=== PATIENT | male | born 1950 | race Caucasian/White ===

== ENCOUNTER 2021-06-10 12:33 | Outpatient (CLI) | payer MEDICARE, OTHER, SELFPAY ==
--- NOTE | ~2021-06-10 | XR_ITS ---
XR chest 2V DATE: 06/10/2021 12:53 INDICATION: Cough TECHNIQUE: PA and lateral views COMPARISON: portable AP chest FINDINGS: Normal heart size. No hilar or mediastinal enlargement. No pulmonary infiltrate or consolid ation, pleural effusion or pulmonary vascular congestion or pneumothorax. Degenerative spurring and mild dextro scoliosis of the thoracic spine. IMPRESSION: No active cardiopulmonary disease Reviewed, dictated and finalized at location A. N PAPER HAT MENDER
== END 2021-06-10 12:34 | disposition home or self-care (01) ==
PROVIDERS: PCP Internal Medicine; Visit Provider Internal Medicine
DX: R05.9 Cough, unspecified (principal)
CPT/HCPCS: 71046

== ENCOUNTER 2022-05-08 10:51 | Outpatient (CLI) | payer MEDICARE, OTHER, SELFPAY ==
[2022-05-08 20:01] LABS: Alanine Aminotransferase 24 U/L (6-50); Albumin Level 4.3 g/dL (3.5-5.1); Alkaline Phosphatase 77 U/L (38-126); Anion Gap 5 mmol/L (8-16); Aspartate Amino Transferase 34 U/L (17-59); Bilirubin,Total 0.5 mg/dL (0.2-1.3); Blood Urea Nitrogen 15 mg/dL (9-20); Calcium 9.1 mg/dL (8.4-10.2); Carbon Dioxide 30 mmol/L (22-30); Chloride 104 mmol/L (98-107); Cholesterol 136 mg/dL (0-200); Estimated Glomerular Filt Rate > 60; Glucose 103 mg/dL (65-110); HDL Direct 38 mg/dL; Potassium 4.9 mmol/L (3.4-5.0); Sodium 139 mmol/L (137-145); Triglycerides 120 mg/dL (<150)
[2022-05-08 20:12] LABS: LDL Cholesterol Direct 66 mg/dL
== END 2022-05-08 10:52 | disposition home or self-care (01) ==
LOC: ANHGOSHLAB 10:53
PROVIDERS: PCP Family Medicine; Visit Provider Family Medicine
DX: I25.10 Atherosclerotic heart disease of native coronary artery without angina pectoris (principal); E78.5 Hyperlipidemia, unspecified; Z13.228 Encounter for screening for other metabolic disorders; Z12.5 Encounter for screening for malignant neoplasm of prostate
CPT/HCPCS: 36415; 80053; 80061; 84153; G0103

== ENCOUNTER → 2022-08-26 12:02 | Outpatient (CLI) | payer MEDICARE, OTHER, SELFPAY ==
--- NOTE | ~2022-08-26 | XR_ITS ---
EXAMINATION: XR chest 2V Exam Date/Time: 08/26/2022 12:09 CDT HISTORY: J39.8 - Other specified diseases of upper respiratory tract Comparison: 06/10/2021. RESULT: Lines, tubes, and devices: None. Lungs and pleura: Clear. Cardiomediastinal silhouette: Stable. Other: No acute osseous or upper abdominal finding. IMPRESSION: No acute cardiopulmonary process. Reviewed, dictated and finalized at location K.
== END ==
PROVIDERS: PCP Family Medicine; Visit Provider Family Medicine
DX: J39.8 Other specified diseases of upper respiratory tract (principal)
CPT/HCPCS: 71046

== ENCOUNTER 2022-08-26 12:28 | Outpatient (CLI) | payer MEDICARE, OTHER, SELFPAY ==
[2022-08-26 20:33] LABS: Prostate Specific Antigen 3.6 ng/mL (< OR = 4.0)
== END 2022-08-26 12:29 | disposition home or self-care (01) ==
LOC: ANHGOSHLAB 12:32
PROVIDERS: PCP Family Medicine; Visit Provider Family Medicine
DX: R97.20 Elevated prostate specific antigen [PSA] (principal); Z12.5 Encounter for screening for malignant neoplasm of prostate
CPT/HCPCS: 36415; 84153; G0103

== ENCOUNTER → 2023-04-14 13:40 | Outpatient (CLI) | payer MEDICARE, OTHER, SELFPAY ==
--- NOTE | ~2023-04-14 | XR_ITS ---
EXAM: XR knee LT 3V DATE: 04/14/2023 14:02 HISTORY: Pain in unspecified knee; medial Lt knee pain w/o injury . COMPARISON: None available. FINDINGS: Normal mineralization. No fracture or dislocation. 5 cm mostly sclerotic lesion in the med ullary space of the distal femur, approximately 10 cm above the joint line, irregular margin with rose row zone of transition, calcified matrix. No cortical breakthrough, periosteal change, or scalloping. Mild medial joint space narrowing. Mild tricompartmental osteophytosis. No erosion or periosteal sandra nge. Soft tissues within normal limits. IMPRESSION: No acute osseous finding in the left knee. Mild tricompartmental osteoarthritis. 5 cm distal left femoral lesion, likely enchondroma. Low-grade chondrosarcoma cannot be excluded radi ographically. If pain localizes to the distal femur, consider MR of the femur and/or bone scanning. O therwise recommend close clinical/radiographic follow-up. Reviewed, dictated and finalized at location K. RACT ADMIN IMPRESSION: No acute osseous finding in the left knee. Mild tricompartmental osteoarthritis. 5 cm distal left femoral lesion, likely enchondroma. Low-grade chondrosarcoma c annot be excluded radiographically. If pain localizes to the distal femur, cons ider MR of the femur and/or bone scanning. Otherwise recommend close clinical/r adiographic follow-up.
== END ==
PROVIDERS: PCP Nurse Practitioner Family; Visit Provider Nurse Practitioner Family
DX: M25.562 Pain in left knee (principal); M17.12 Unilateral primary osteoarthritis, left knee; M89.9 Disorder of bone, unspecified
CPT/HCPCS: 73562

== ENCOUNTER 2023-05-14 10:39 | Outpatient (CLI) | payer MEDICARE, OTHER, SELFPAY ==
[2023-05-14 17:29] LABS: Alanine Aminotransferase 26 U/L (6-50); Albumin Level 4.3 g/dL (3.5-5.1); Alkaline Phosphatase 76 U/L (38-126); Anion Gap 8 mmol/L (8-16); Aspartate Amino Transferase 41 U/L (17-59); Bilirubin,Total 0.9 mg/dL (0.2-1.3); Blood Urea Nitrogen 14 mg/dL (9-20); Calcium 9.3 mg/dL (8.4-10.2); Carbon Dioxide 30 mmol/L (22-30); Chloride 101 mmol/L (98-107); Cholesterol 112 mg/dL (0-200); Estimated Glomerular Filt Rate > 60; Glucose 89 mg/dL (65-110); HDL Direct 30 mg/dL; Potassium 4.3 mmol/L (3.4-5.0); Sodium 139 mmol/L (137-145); Triglycerides 125 mg/dL (<150)
[2023-05-14 17:40] LABS: LDL Cholesterol Direct 60 mg/dL
== END 2023-05-14 10:40 | disposition home or self-care (01) ==
LOC: ANHGOSHLAB 10:41
PROVIDERS: PCP Family Medicine; Visit Provider Family Medicine
DX: I25.10 Atherosclerotic heart disease of native coronary artery without angina pectoris (principal); Z13.220 Encounter for screening for lipoid disorders; Z13.228 Encounter for screening for other metabolic disorders; Z12.5 Encounter for screening for malignant neoplasm of prostate
CPT/HCPCS: 36415; 80053; 80061; 84153; G0103

== ENCOUNTER 2023-05-18 13:29 | Outpatient (CLI) | payer MEDICARE, OTHER, SELFPAY ==
--- NOTE | ~2023-05-18 | MR_ITS ---
EXAMINATION: MR femur LT wo con DATE: 05/18/2023 14:46 INDICATION: Benign neoplasm of bone and articular cartilage. Left femur pain. TECHNIQUE: Magnetic resonance imaging (MRI) of the left femur was performed without intravenous contr ast. Sequences included axial, sagittal and coronal T1-weighted FSE and fluid sensitive FSE STIR. COMPARISON: Left knee radiographs dated 04/14/2023 FINDINGS: Intramedullary bone lesion in the distal metadiaphyseal region of the left femur which corresponds to the ring and arc-like chondroid matrix on the prior radiographs. The lesion which similarly demonstr ates a typical pattern for an enchondroma with cluster of grape like increased T2 signal and ring and arc-like pattern of low signal intensity corresponding to the calcified matrix. The lesion measures 5.0 cm proximal to distal and 2.3 x 2.0 cm in maximal transaxial dimensions. Immediately adjacent mar row signal is normal with no evident reactive edema. There is no evident endosteal scalloping, perios titis or extraosseous extension. There is intramedullary metallic magnetic field artifact in the prox imal left femur which could be due to either internal fixation instrumentation or femoral component o f a left hip arthroplasty. Small left knee joint effusion. There is mild edema-like marrow signal sandra nge along the medial margin of the anterior weightbearing medial femoral condyle. There is a partiall y visualized at least 5.8 x 2.6 x 3.0 cm loculated fluid collection located posterior to the left gre ater trochanter which is without surrounding inflammatory edema. Differential would include could a p ostoperative hematoma/seroma, bursitis, ganglion cyst or less likely abscess in the appropriate clini elma setting. IMPRESSION: 1. 5.0 x 2.3 x 2.0 cm enchondroma in the distal left femoral metadiaphyseal region. No aggressive fea tures on MRI or radiographs to elevate suspicion for malignant transformation/chondrosarcoma. 2. Large loculated fluid collection posterior to the left greater trochanter. There are postoperative changes in the proximal femur and this could represent a residual postoperative hematoma/seroma. Dif ferential would include bursitis, ganglion cyst or less likely abscess in the appropriate clinical se tting. 3. Nonspecific small right knee joint effusion. 4. Marrow edema along the medial aspect of the anterior weightbearing medial femoral condyle which co uld be related to osteoarthritis and overlying chondromalacia. Assessment on the current study is limited due to both the large kpuau-pp-fxim as well as magnetic fi eld distortion resulting from positioning at the peripheral margin field of imaging. Reviewed, dictated and finalized at location A. PING CLERK IMPRESSION: 1. 5.0 x 2.3 x 2.0 cm enchondroma in the distal left femoral metadiaphyseal reg ion. No aggressive features on MRI or radiographs to elevate suspicion for reinaldo gnant transformation/chondrosarcoma. 2. Large loculated fluid collection posterior to the left greater trochanter. T here are postoperative changes in the proximal femur and this could represent a residual postoperative hematoma/seroma. Differential would include bursitis, g anglion cyst or less likely abscess in the appropriate clinical setting. 3. Nonspecific small right knee joint effusion. 4. Marrow edema along the medial aspect of the anterior weightbearing medial fe moral condyle which could be related to osteoarthritis and overlying chondromal acia. Assessment on the current study is limited due to both the large cpexj-el-hpal as well as magnetic field distortion resulting from positioning at the peripher al margin field of imaging.
== END 2023-05-18 13:30 | disposition home or self-care (01) ==
PROVIDERS: PCP Family Medicine; Visit Provider Physician Assistant
DX: D16.9 Benign neoplasm of bone and articular cartilage, unspecified (principal); M25.462 Effusion, left knee
CPT/HCPCS: 73721

== ENCOUNTER 2024-07-20 15:22 | Outpatient (CLI) | payer MEDICARE, OTHER, SELFPAY ==
--- OUTSIDE RECORDS SUMMARY | 2024-07-20 16:53 | XMS_ITS | Encounter Summary ---
Author Organization [facility] Healthcare Address [address] [place] [address] Care Team Providers Care Chief Drafter Name Role Phone Miscellaneous, Not In File Primary Care Provider Unavailable Reason for Visit * Auth/Cert (Routine) Specialty Diagnoses / Procedures Referred By Delmar t Referred To Contact Diagnoses Personal history of colonic polyps Encounter for screening colonoscopy Personal history of colonic polyps [Z86.010] Encounter for screening colonoscopy [Z12.11] Procedures [place] COLONOSCOPY FLX DX W/COLLJ SPEC WHEN PFRMD COLONOSCOPY Referral ID Status Reason Start Date Expiration Date Visits Re quested Visits Authorized [id number] 1 1 Encounter Details Date Type Department Care Team (Late st Contact Info) Description 02/02/2024 Hospital Encounter [facility] [address] [place] [address] Henrique Green MD [address] [place] [phone] Social History Tobacco Use Types Packs/Day Years Used Date Smoking Tobacco: Former Cigarettes Q uit: 1976 Smokeless Tobacco: Never Alcohol Use Standard Drinks/Week Comments Not Currently 0 (1 standard drink = 0.6 oz pur e alcohol) Personal Safety Answer Date Recorded Getting School Help Needed Not on file 05/01 Sex and Gender Information Value Date Recorded Sex Assigned at Not on file 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
--- OUTSIDE RECORDS SUMMARY | 2024-07-20 16:53 | XMS_ITS | Referral Summary ---
Author Organization [facility] Address [address] [place] [address] Care Team Providers Care Exhibit Specialist Name Role Phone Miscellaneous, Not In File Primary Care Provider Unavailable Allergies Active Allergy Reactions Criticality Noted Date Comments Sulfa (Sulfonamide Antibiotics) Hives Reaction: HIVES Medications metoprolol XL (TOPROL-XL) 25 mg 24 hr tablet Take 1 tablet (25 mg total) by mouth daily Active atorvastatin (LIPITOR) 10 mg tablet Take 2 tablets (20 mg total) by mouth daily Active aspirin 81 mg chewable tablet Take 1 tablet (81 mg total) by mouth daily Active multivitamin tabletIndicatio ns:Vitamin Deficiency Prevention Take 1 tablet by mouth Active triamcinolone (NASACORT) 55 mcg nasal inhaler Administer 2 sprays into each nostril daily 16.9 mL 3 0 Active Active Problems Problem Noted Date Diagnosed Date Impacted cerumen of right ear 08/12/2023 Balance problems 08/12/2023 Sensorineural hearing loss (SNHL) of both ears 0 08/12/2023 Personal history of colonic polyps 05/01/2023 Encounter for screening colonoscopy 05/01/2023 Acute diffuse otitis externa of left ear 021 Chronic maxillary sinusitis 07/04/2019 Dizziness and giddiness 07/04/2019 Screen for colon cancer 01/06/2019 Overview (01/06/2019): Added automatically from request for surgery [id number] Social History Tobacco Use Types Packs/Day Years [...] on file 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 Gender Identity Not on file Sexual Orientation Not on file Last Filed Vital Signs Vital Sign Reading Time Taken Comments Blood Pressure 140/70 01/25/2019 11:05 AM CDT Pulse 59 01/25/2019 11:05 AM CDT Temperature 36.9 C (98.5 F) 01/25/2019 9:37 AM CDT Respiratory Rate 18 08/12/2023 10:36 AM CDT Oxygen Saturation 99% 01/25/2019 11:05 AM CDT Inhaled Oxygen Concentration - - Weight 93 kg (205 lb) 08/12/2023 10:36 AM CDT Height 182.9 cm (6') 08/12/2023 10:36 AM CDT Body Mass Index 27.8 08/12/2023 10:36 AM CDT Plan of Treatment Not on file Procedures Procedure Name Priority Date/Time Associated Diagnosis Comments COLONOSCOPY 01/25/2019 9:44 AM CDT from Last 3 Months or Most Recently Relevant to Health Maintenance Results * COLONOSCOPY (01/25/2019 9:44 AM CDT) Anatomical Region Laterality Modality Other Narrative Procedure Note Evelio Fuentes MD - 01/25/2019 9:44 AM CDT [facility] Patient Name: Tk Boateng Procedure Date: 01/25/2019 9:44 AM Date of : 1950 Admit Type: Outpatient Age: 68 Gender: Male Attending MD: Evelio Fuentes M.D. Room: [facility] END[facility]COPY RO[facility] 2 Note Status: Finalized Patient Profile: Refer to note in patient chart for documentation of history and physical. Procedure: Colonoscopy Indications: High risk colon cancer surveillance: Personalhistory of colonic polyps, Last colonoscopy: August 2015 Referring MD: Rm Naranjo MD Providers: Evelio Fuentes M.D. Impression: - Hemorrhoids found on perianal exam. - Diverticulosis in the sigmoid colon. - The examination was otherwise normal. - No specimens collected. Recommendation: - Discharge patient to home. - Resume previous diet. - Continue present medications. - Repeat colonoscopy in 5 years for surveillance. - Return to primary care physician as previously scheduled. Medicines: Propofol per Anesthesia Complications: No immediate complications. Estimated Blood Loss: Estimated blood loss: none. Procedure: Pre-Anesthesia Assessment: - This assessment was completed [Time of Assessment] prior to the administration of sedation. The benefits, risks and alternatives of theprocedure and sedation were discussed and informed consent was obtained. All questions were answered. Please referto the signed informed consent document in the medical record. The bowel preparation used was Miralax.Bowel prep was administered using a single dose. The scope was passed under direct vision. The Colonoscope [id number] was introduced through the anusand advanced to the the cecum, identified by appendiceal orifice and ileocecal valve. The colonoscopy was performed without difficulty. The patient toleratedthe procedure well. The quality of the bowel preparation was good. Findings: Hemorrhoids were found on perianal exam. Multiple small and large-mouthed diverticula were found in thesigmoid colon. The exam was otherwise without abnormality. Electronically signed by Evelio Fuentes M.D. Evelio Fuentes M.D. 01/25/2019 10:49:40 AM Number of Addenda: 0 Note Initiated On: 01/25/2019 9:44 AM Procedure Code(s): --- Professional --- G0105, Colorectal cancer screening; colonoscopy on individual at high risk Diagnosis Code(s): --- Professional --- K57.30, Diverticulosis of large intestine without perforation orabscess without bleeding K64.9, Unspecified hemorrhoids Z86.010, Personal history of colonic polyps CPT copyright 2017 [employer]. All rights reserved. The codes documented in this report are preliminary and upon mesh worker reviewmay be revised to meet current compliance requirements. Recognized by the [place] [employer] for promoting quality in endoscopy Evelio Fuentes MD ENDOSCOPY PROCEDURES Final Re sult from Last 3 Months or Most Recently Relevant to Health Maintenance Insurance MEDICARE [facility] Address: [facility] [address] [place] [address] [facility] MEDICARE [facility] MEDICARE [facility] Advance Directives For more information, please contact: [phone] * Full Code (Latest Code Status on File) Date Activated Date Inactivated Comments 01/25/2019 9:29 AM 01/25/2019 3:53 PM * Full Code Date Activated Date Inactivated Comments 01/25/2019 9:29 AM 01/25/2019 9:29 AM Care Teams Exhibit Specialist Relationship Specialty Start Date End Date Miscellaneous, Not In File PCP - General 01/25/24
--- OUTSIDE RECORDS SUMMARY | 2024-07-20 16:53 | XMS_ITS | Clinical Summary ---
Author Organization [facility] Address [address] [place] [address] Care Team Providers Care Pet Training Instructor Name Role Phone Miscellaneous, Not In File [...] (01/06/2019): Added automatically from request for surgery [id number] Surgical History Surgery Date Site/Laterality Comments [facility] FOOT RELEASE CARDIAC CATHETERIZATION HIP SURGERY POLYPECTOMY COLONOSCOPY 08/03/2015 - 09/01/2015 CARDIAC STENT PLACEMENT 08/02/2014 - 08/31/2014 3 stents Medical History Medical History Date Comments Osteoarthritis Heart attack (HCC) Colon polyp Allergic rhinitis Heart disease Family History Medical History Relation Name Comments Arthritis Mother Cancer Mother Hypertension Mother Colon cancer Sister Relation Name Status Comments Mother Sister Social History Tobacco Use Types Packs/Day Years [...] on file 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 Gender Identity Not on file Sexual Orientation Not on file Obstetrics History Last Filed Vital Signs Vital Sign Reading [...] 08/12/2023 10:36 AM CDT Plan of Treatment Health Maintenance Due Date Last Done Comments Depression Screening 1950 Fall Risk Assessment 1950 Hepatitis C Screening 1950 DTaP/Tdap/Td Vaccine (1 - Tdap) 1960 Hepatitis B Screening 1967 Zoster Vaccine (1 of 2) 1999 Abdominal Aortic Aneurysm (A AA) Screen 2014 Well Visit 65+ 2014 Pneumococcal vaccine 65+ (2 of 2 - PCV) 08/15/2015 08/14/2014 Influenza Vaccine (#1) 2024 8, 02/23/2017, 02/21/2016 Colon Cancer Screening-Colonoscopy 01/25/2029 01/25/2019, 09/24/2015, 09/24/2015 Colon Cancer Screening-CT Colonography Discontinued 01/25/2019, 09/24/2015, 09/24/2015 Colon Cancer Screening-DNA Stool Discontinued 01/25/2019, 09/24/2015, 09/24/2015 Colon Cancer Screening-FIT Discontinued 01/25, 09/24/2015, 09/24/2015 Colon Cancer Screening-Sigmoidoscopy Discontinue d 01/25/2019, 09/24/2015, 09/24/2015 Procedures Procedure Name Priority Date/Time Associated Diagnosis [...] Male Attending MD: Evelio Fuentes M.D. Room: [facility] ENDOSCOPY ROOM 2 Note Status: Finalized Patient [...] was passed under direct vision. The Colonoscope [id number] was introduced through the anusand advanced to [...] history of colonic polyps CPT copyright 2017 [employer]. All rights reserved. The codes documented in this report are preliminary and upon car rider reviewmay be revised to meet current compliance requirements. Recognized by the [employer] for promoting quality in endoscopy Evelio Fuentes MD ENDOSCOPY PROCEDURES Final Re sult from Last 3 Months or Most Recently Relevant to Health Maintenance Insurance MEDICARE [facility] MEDICARE [facility] MEDICARE [facility] Advance Directives For more information, please contact: [phone] * Full Code (Latest Code Status on File) Date Activated Date Inactivated Comments 01/25/2019 9:29 AM 01/25/2019 3:53 PM * Full Code Date Activated Date Inactivated Comments 01/25/2019 9:29 AM 01/25/2019 9:29 AM Care Teams Pet Training Instructor Relationship Specialty Start Date End Date Miscellaneous, Not In File PCP - General 01/25/24
[2024-07-20 19:20] LABS: Basophils Absolute Auto 0.1 K/mm3 (0.0-0.1); Basophils Percent Auto 0.7 % (0.2-1.2); Eosinophils Absolute Auto 0.2 K/mm3 (0-0.3); Eosinophils Percent Auto 2.4 % (0-4.4); Hematocrit 42.8 % (42.0-52.0); Hemoglobin 13.9 g/dL (14.0-18.0); Immature Granulocyte Absolute 0.04 K/mm3 (0.00-0.031); Immature Granulocyte Percent A 0.6 % (0-0.5); Lymphocytes Absolute Auto 0.79 K/mm3 (0.9-3.2); Mean Corpuscular HGB Conc 32.5 g/dl (32-36); Mean Corpuscular Hemoglobin 31.5 pg (26-34); Mean Corpuscular Volume 97.1 fl (80-100); Mean Platelet Volume 9.6 fl (7.4-10.4); Monocytes Absolute Auto 0.8 K/mm3 (0.1-0.6); Monocytes Percent Auto 10.8 % (2.6-8.5); Neutrophils Absolute Auto 5.4 K/mm3 (1.3-6.7); Neutrophils Percent Auto 74.5 % (45.5-73.1); Platelet Count Result 212 k/mm3 (150-375); Red Blood Count 4.41 M/mm3 (4.6-6.20); Red Cell Distribution Width 13.1 % (11.5-14.5); White Blood Count 7.2 K/mm3 (4.5-10.0)
[2024-07-20 20:03] LABS: Alanine Aminotransferase 28 U/L (6-50); Albumin Level 4.3 g/dL (3.5-5.1); Alkaline Phosphatase 79 U/L (38-126); Anion Gap 7 mmol/L (4-12); Aspartate Amino Transferase 29 U/L (17-59); Bilirubin,Total 0.9 mg/dL (0.2-1.3); Blood Urea Nitrogen 15 mg/dL (9-20); Calcium 9.5 mg/dL (8.4-10.2); Carbon Dioxide 31 mmol/L (22-30); Chloride 102 mmol/L (98-107); Cholesterol 100 mg/dL (0-200); Estimated Glomerular Filt Rate > 60; Glucose 97 mg/dL (65-110); HDL Direct 35 mg/dL; Potassium 5.3 mmol/L (3.4-5.0); Sodium 140 mmol/L (137-145); Triglycerides 99 mg/dL (<150)
[2024-07-20 20:13] LABS: LDL Cholesterol Direct 45 mg/dL
[2024-07-20 20:32] LABS: Prostate Specific Antigen 3.8 ng/mL (< OR = 4.0)
== END 2024-07-20 15:23 | disposition home or self-care (01) ==
LOC: ANHGOSHLAB 15:23
PROVIDERS: PCP Nurse Practitioner Family; Visit Provider Nurse Practitioner Family
DX: E78.49 Other hyperlipidemia (principal); I25.10 Atherosclerotic heart disease of native coronary artery without angina pectoris; R53.83 Other fatigue; Z12.5 Encounter for screening for malignant neoplasm of prostate; E66.89 Other obesity not elsewhere classified
CPT/HCPCS: 36415; 80053; 80061; 84153; 84443; 85025; G0103

== ENCOUNTER 2024-07-28 09:19 | Outpatient (CLI) | payer MEDICARE, OTHER, SELFPAY ==
--- OUTSIDE RECORDS SUMMARY | 2024-07-28 09:59 | XMS_ITS | Referral Summary ---
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 Room: [facility] ENDOSCOPY ROOM 2 Note Status: [...] was passed under direct vision. The Colonoscope [id number] was introduced through the anusand advanced to [...] history of colonic polyps CPT copyright 2017 [employer]. All rights reserved. The codes documented in this report are preliminary and upon motion picture set up worker reviewmay be revised to meet current compliance requirements. Recognized by the [employer] for promoting quality in endoscopy Evelio Fuentes MD ENDOSCOPY PROCEDURES Final Re sult from Last 3 Months or Most Recently Relevant to Health Maintenance Insurance MEDICARE [facility] Address: [facility] [address] [place] [address] [facility] MEDICARE [facility] MEDICARE [facility] Advance Directives For more information, please contact: [phone] * Full Code (Latest Code Status on File) Date Activated Date Inactivated Comments 01/25/2019 9:29 AM 01/25/2019 3:53 PM * Full Code Date Activated Date Inactivated Comments 01/25/2019 9:29 AM 01/25/2019 9:29 AM Care Teams Plc Engineer Relationship Specialty Start Date End Date Miscellaneous, Not In File PCP - General 01/25/24
--- OUTSIDE RECORDS SUMMARY | 2024-07-28 09:59 | XMS_ITS | Clinical Summary ---
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 Room: [facility] ENDOSCOPY ROOM 2 Note Status: Finalized Patient [...] was passed under direct vision. The Colonoscope [id number] was introduced through the anusand advanced to [...] history of colonic polyps CPT copyright 2017 [employer]. All rights reserved. The codes documented in this report are preliminary and upon hose inspector reviewmay be revised to meet current compliance requirements. Recognized by the [employer] [employer] for promoting quality in endoscopy Evelio Fuentes MD ENDOSCOPY PROCEDURES Final Re sult from Last 3 Months or Most Recently Relevant to Health Maintenance Insurance MEDICARE [facility] MEDICARE [facility] MEDICARE [facility] Advance Directives For more information, please contact: [phone] * Full Code (Latest Code Status on File) Date Activated Date Inactivated Comments 01/25/2019 9:29 AM 01/25/2019 3:53 PM * Full Code Date Activated Date Inactivated Comments 01/25/2019 9:29 AM 01/25/2019 9:29 AM Care Teams Cpa Tax Relationship Specialty Start Date End Date Miscellaneous, Not In File PCP - General 01/25/24
--- OUTSIDE RECORDS SUMMARY | 2024-07-28 10:00 | XMS_ITS | Encounter Summary ---
Author Organization [facility] Healthcare Address [address] [place] [address] Care Team Providers Care Nursing Faculty Name Role Phone Miscellaneous, Not In File Primary Care Provider Unavailable Reason for Visit * Auth/Cert (Routine) Specialty Diagnoses / Procedures Referred By Delmar t Referred To Contact Diagnoses Personal history of colonic polyps Encounter for screening colonoscopy Personal history of colonic polyps [Z86.010] Encounter for screening colonoscopy [Z12.11] Procedures [place] COLONOSCOPY FLX DX W/COLLJ SPEC WHEN PFRMD COLONOSCOPY Referral ID Status Reason Start Date Expiration Date Visits Re quested Visits Authorized [id number] 1 1 Encounter Details Date Type Department Care Team (Late st Contact Info) Description 02/02/2024 Hospital Encounter [facility] [address] [place] [address] Henrique Green MD [address] [place] [id number] Social History Tobacco Use Types Packs/Day Years [...] on file 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
[2024-07-28 19:39] LABS: Anion Gap 8 mmol/L (4-12); Blood Urea Nitrogen 15 mg/dL (9-20); Calcium 9.5 mg/dL (8.4-10.2); Carbon Dioxide 30 mmol/L (22-30); Chloride 101 mmol/L (98-107); Estimated Glomerular Filt Rate > 60; Glucose 88 mg/dL (65-110); Sodium 139 mmol/L (137-145)
== END 2024-07-28 09:20 | disposition home or self-care (01) ==
LOC: ANHGOSHLAB 09:20
PROVIDERS: PCP Nurse Practitioner Family; Visit Provider Nurse Practitioner Family
DX: E87.5 Hyperkalemia (principal)
CPT/HCPCS: 36415; 80048

== ENCOUNTER 2024-08-30 10:27 | Emergency (ER) | payer MEDICARE, OTHER, SELFPAY ==
--- NOTE | ~2024-08-30 | CT_ITS ---
CT cervical spine wo con Ordering provider: Glenn Rodarte MD History: . fall . Comparison: None. Technique: CT of the cervical spine was performed without contrast. Sagittal and coronal reformatted images were also obtained and reviewed. Automated exposure control and iterative reconstruction ary hnique were employed. The dose-length product was 431.25 mGy-cm. FINDINGS: VERTEBRAE: No subluxation or acute fracture. The occipital condyles are intact. Degenerative changes of the spine. DISC SPACES: Normal. Multilevel facet joint disease. Multilevel uncovertebral joint osteoarthritic ch anges. Narrowing of the left foramina at the level of C3-C4. Bilateral narrowing of the foramina at t he level of C4-C5. Narrowing of the left foramina at the level of C5-C6. Bilateral narrowing of the f oramina at the level of C6-C7. PARASPINOUS SOFT TISSUES: Normal. IMPRESSION: No acute osseous abnormality cervical spine. Multilevel facet joint disease, uncovertebral joint osteoarthritic changes and intervertebral foramin al narrowing. MRI is better for evaluation. Reviewed, dictated and finalized at location A. IMPRESSION: No acute osseous abnormality cervical spine. Multilevel facet joint disease, uncovertebral joint osteoarthritic changes and intervertebral foraminal narrowing. MRI is better for evaluation.
--- NOTE | ~2024-08-30 | CT_ITS ---
Non-contrast Head CT History: Head injury Technique: Axial non-contrast imaging of the brain was performed. Dose reduction technique was used on this scan by utilizing automated exposure control and iterative reconstruction technique. The dose -length product (DLP) was 681.00 mGy-cm. Findings: There is no evidence of intracranial hemorrhage, mass lesion, or acute infarct. Brain par enchyma appears normal. The ventricles and subarachnoid spaces are normal in size. The calvarium ap pears normal. The visualized paranasal sinuses and mastoid air cells are clear. There is focal soft tissue swelling the left parietal scalp. Impression: No intracranial abnormality seen. Focal soft tissue swelling left parietal scalp. Reviewed, dictated and finalized at [facility]. Impression: No intracranial abnormality seen. Focal soft tissue swelling left parietal scalp.
[2024-08-30 10:35] VITALS: BP 159/75; PULSE 78; RESP 16; TEMP 36.6; O2SAT 98
[2024-08-30 10:46] VITALS: BP 133/66; PULSE 67; RESP 18; O2SAT 97
[2024-08-30 11:05] VITALS: BP 149/68; PULSE 73; RESP 17; O2SAT 97
[2024-08-30 11:31] VITALS: BP 145/70; PULSE 75; RESP 15; O2SAT 95
[2024-08-30] MEDS: ACETAMINOPHEN 500 MG TABLET 1000 MG PO (11:38)
--- OUTSIDE RECORDS SUMMARY | 2024-08-30 11:41 | XMS_ITS | Referral Summary ---
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 [facility] 2 Note Status: Finalized Patient [...] was passed under direct vision. The Colonoscope [id number] was introduced through the anusand advanced to [...] history of colonic polyps CPT copyright 2017 [employer]. All rights reserved. The codes documented in this report are preliminary and upon clip on sunglasses assembler reviewmay be revised to meet current compliance requirements. Recognized by the [employer] for promoting quality in endoscopy Evelio Fuentes MD ENDOSCOPY PROCEDURES Final Re sult from Last 3 Months or Most Recently Relevant to Health Maintenance Insurance MEDICARE [facility] Address[facility] [address] [place] [address] [facility] MEDICARE [facility] MEDICARE [facility] Advance Directives For more information, please contact: [phone] * Full Code (Latest Code Status on File) Date Activated Date Inactivated Comments 01/25/2019 9:29 AM 01/25/2019 3:53 PM * Full Code Date Activated Date Inactivated Comments 01/25/2019 9:29 AM 01/25/2019 9:29 AM Care Teams Drainage Inspector Relationship Specialty Start Date End Date Miscellaneous, Not In File PCP - General 01/25/24
--- OUTSIDE RECORDS SUMMARY | 2024-08-30 11:41 | XMS_ITS | Clinical Summary ---
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 Room: [facility] ENDOSCOPY ROOM 2 Note Status: Finalized Patient [...] was passed under direct vision. The Colonoscope CF-[id number] was introduced through the anusand advanced to [...] history of colonic polyps CPT copyright 2017 [employer]. All rights reserved. The codes documented in this report are preliminary and upon director records management reviewmay be revised to meet current compliance requirements. Recognized by the [employer] for promoting quality in endoscopy Evelio Fuentes MD ENDOSCOPY PROCEDURES Final Re sult from Last 3 Months or Most Recently Relevant to Health Maintenance Insurance MEDICARE [facility] MEDICARE [facility] MEDICARE [facility] Advance Directives For more information, please contact: [phone] * Full Code (Latest Code Status on File) Date Activated Date Inactivated Comments 01/25/2019 9:29 AM 01/25/2019 3:53 PM * Full Code Date Activated Date Inactivated Comments 01/25/2019 9:29 AM 01/25/2019 9:29 AM Care Teams Orthodontic Technician Assistant Relationship Specialty Start Date End Date Miscellaneous, Not In File PCP - General 01/25/24
--- OUTSIDE RECORDS SUMMARY | 2024-08-30 11:41 | XMS_ITS | Encounter Summary ---
Author Organization [facility] Address [address] [place] [address] Care Team Providers Care Twister Tender Name Role Phone Miscellaneous, Not In File Primary Care Provider Unavailable Reason for Visit * Auth/Cert (Routine) Specialty Diagnoses / Procedures Referred By Delmar t Referred To Contact Diagnoses Personal history of colonic polyps Encounter for screening colonoscopy Personal history of colonic polyps [Z86.010] Encounter for screening colonoscopy [Z12.11] Procedures GA COLONOSCOPY FLX DX W/COLLJ SPEC WHEN PFRMD COLONOSCOPY Referral ID Status Reason Start Date Expiration Date Visits Re quested Visits Authorized [id number] 1 1 Encounter Details Date Type Department Care Team (Late st Contact Info) Description 02/02/2024 Hospital Encounter [facility] [address] [place] [address] Henrique Green MD [address] [place] [id number] Social History Tobacco Use Types Packs/Day Years [...] on file 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
[2024-08-30 11:46] VITALS: BP 166/74; PULSE 71; RESP 17; O2SAT 94
--- NOTE | 2024-08-30 11:46 | ED_ITS ---
HPI - Head Injury General Chief complaint: Head Injury Stated complaint: fell hitting head on concrete, confusion Time Seen by Provider: 08/30/24 10:37 Source: patient Mode of arrival: ambulatory Limitations: no limitations History of Present Illness HPI Narrative: This is a 74-year-old male that presents to the emergency department after a fall with head injury. Reports he was trying to carry part of his fence that was broken. He lost his balance and fell backwards. He hit his head. He does not believe he lost consciousness. Reports some confusion initially. Denies vision changes, vomiting, numbness, weakness. No other focal injuries or areas of pain. Related Data Home Medications ?Medication ?Instructions ?Recorded ?Confirmed ?Last Taken ?Type aspirin 81 mg tablet,delayed 81 mg PO DAILY 07/04/19 07/20/24 Unknown History release (Adult Aspirin Regimen) nitroglycerin 0.3 mg sublingual 0.3 mg sublingual Q5M PRN 05/08/22 07/20/24 Unknown History tablet acetaminophen 500 mg tablet 500 mg PO Q6H PRN 04/14/23 07/20/24 Unknown History (Tylenol Extra Strength) ibuprofen 200 mg tablet (Advil) 200 mg PO Q6H PRN 04/14/23 07/20/24 Unknown History Allergies Allergy/AdvReac Type Severity Reaction Status Date / Time Sulfa (Sulfonamide Allergy Intermediate Rash Verified 08/30/24 10:29 Antibiotics) Review of Systems Review of Systems: CONSTITUTIONAL: Denies fever EYES: Denies visual changes GASTROINTESTINAL: Denies vomiting NEUROLOGIC: Reports headache. Denies numbness, or weakness. 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 Family History Family History Sibling Family history of elevated blood lipids Father Family history of Parkinson's disease Social History Social History Smoking status: Never smoker Second hand tobacco smoke exposure: No Smoking end date: 05/04/75 Alcohol intake: never Substance use: never Lack of Transportation: No Lack of Food: Never True Current Housing: I Have Housing Concerned About Future Housing: No Difficulty Paying Gas/Electric Bills: No Difficulty Paying for Meds: No Currently Unemployed: No Education: Associate Degree Difficulty w/ Childcare or Family Care: No Exam Narrative: GENERAL: Well-appearing, well-nourished, and in no acute distress. HEAD: Normocephalic. Posterior scalp hematoma EYES: PERRLA and EOMI. ENT: Nares clear, no rhinorrhea or epistaxis. Mucous membranes moist. Oropharynx without tonsillar hypertrophy exudate or other lesions. Bilateral TMs pearly villareal non-bulging NECK: Supple. No adenopathy or masses. CHEST: Clear to auscultation. No respiratory distress. No wheezes rales or rhonchi HEART: Regular rate and rhythm. No murmur heard. Normal peripheral pulses. EXTREMITIES: Normal range of motion. No edema. Strength equal in bilateral upper and lower extremities (5/5) SKIN: Warm, dry, no rash. NEURO: No focal deficits. Alert and oriented x3. Cranial nerves 2-12 grossly intact PSYCH: Normal mood and affect Course Vital Signs Vital signs: Vital Signs Temperature 98 F 08/30/24 10:35 Pulse Rate 78 08/30/24 10:35 Respiratory Rate 16 08/30/24 10:35 Blood Pressure 159/75 H 08/30/24 10:35 Pulse Oximetry 98 08/30/24 10:35 Temperature 98 F 08/30/24 10:35 Pulse Rate 78 08/30/24 10:35 Respiratory Rate 16 08/30/24 10:35 Blood Pressure 159/75 H 08/30/24 10:35 Pulse Oximetry 98 08/30/24 10:35 MDM - Head Injury MDM Narrative Medical decision making narrative: Patient presents the emergency department after a fall with head injury. Patient is neurologically intact. CT brain and cervical spine without acute findings. Patient updated on his workup and agrees with plan of care. He is to follow up with primary provider. He was given warnings to return to the ER Differential Diagnosis Differential diagnosis: Likely concussion without loss of consciousness, closed head injury, subarachnoid hematoma and subdural hematoma Imaging Data Radiologist's impression: ITS Impressions Head CT 08/30/24 11:15 Impression: No intracranial abnormality seen. Focal soft tissue swelling left parietal scalp. Cervical Spine CT 08/30/24 11:31 IMPRESSION: No acute osseous abnormality cervical spine. Multilevel facet joint disease, uncovertebral joint osteoarthritic changes and intervertebral foraminal narrowing. MRI is better for evaluation. Critical Care Time Critical Care Time Critical Care Time: No Discharge Plan Discharge Clinical Impression: Head injury Qualifiers: Encounter type: initial encounter Qualified Code(s): S09.90XA - Unspecified injury of head, initial encounter Patient Disposition: Home Condition: Stable Instructions: Concussion (ED) Additional Instructions: Return to the emergency department if you experience fever, vision changes, vomiting, weakness, numbness, or any other symptoms that are concerning to you. Rest. Ice to the area. [id number]-[id number] pain medication as needed Follow up with your primary care doctor Patient Language: Kittitian Prescriptions: No Action aspirin [Adult Aspirin Regimen] 81 mg tablet,delayed release (DR/EC) 81 mg PO DAILY metoprolol succinate 25 mg tablet extended release 24 hr 25 mg PO DAILY Qty: 90 0RF ibuprofen [Advil] 200 mg tablet 200 mg PO Q6H PRN acetaminophen [Tylenol Extra Strength] 500 mg tablet 500 mg PO Q6H PRN nitroglycerin 0.3 mg tablet, sublingual 0.3 mg sublingual Q5M PRN Rx Instructions: do not exceed 3 doses per episode atorvastatin 20 mg tablet See Rx Instructions .ROUTE .COMPLEX Qty: 90 4RF Dose Instruction: TAKE ONE TABLET BY MOUTH EVERY DAY Rx Instructions: TAKE ONE TABLET BY MOUTH EVERY DAY amoxicillin 500 mg capsule 500 mg PO Q8H Qty: 21 1RF Follow-up/Referrals: Jazz Martínez, ECMO SPECIALIST-C [Primary Care Provider] -
== END 2024-08-30 11:54 | disposition home or self-care (01) ==
PROVIDERS: Emergency Provider Physician Assistant; PCP Nurse Practitioner Family
DX: S09.90XA Unspecified injury of head, initial encounter (principal); E78.5 Hyperlipidemia, unspecified; I25.10 Atherosclerotic heart disease of native coronary artery without angina pectoris; W01.0XXA Fall on same level from slipping, tripping and stumbling without subsequent striking against object, initial encounter
CPT/HCPCS: 70450; 72125; 99284; A9270

== ENCOUNTER 2025-02-05 19:16 | Emergency (ER) | payer MEDICARE, OTHER, SELFPAY ==
[2025-02-05] VITALS (10 sets, daily range): BP systolic 156–173; BP diastolic 70–83; PULSE 69–78; RESP 9–19; TEMP 36.9; O2SAT 95–100
--- NOTE | ~2025-02-05 | CT_ITS ---
EXAMINATION: CTA brain carotid DATE: 02/05/2025 21:41 INDICATION: Dizziness. TECHNIQUE: Computed tomographic angiography (CTA) of the head was performed without and with 100 mL Omnipaque-350 intravenous contrast. CTA of the neck was performed with intravenous contrast. Automated exposure control and iterative reconstruction technique were employed. The dose-length product was 1890.11 mGy- cm. Maximum intensity projection and volume rendered 3D-reconstructions were created by the technologist on a separate workstation. COMPARISON: Head CT 08/30/2024 FINDINGS: HEAD CTA: There are scattered areas of low attenuation in the cerebral white matter, which is within normal limits for the patient's age. There is no intracranial hemorrhage, acute infarction, or abnormal intracranial mass lesion. The ventricles are normal in size. There is mild mucosal thickening in the paranasal sinuses. There is dependent fluid in the paranasal sinuses. The mastoid air cells are normal. The orbits are normal. The vertebral arteries are codominant. There is no significant stenosis of basilar artery or the posterior cerebral arteries. There is no significant stenosis of the intracranial internal carotid arteries or anterior or middle cerebral arteries. Anterior communicating artery is normal. The posterior communicating arteries are normal. There is no aneurysm. NECK CTA: There are no pathologically enlarged lymph nodes. There is severe stenosis of origin of right vertebral artery and moderate stenosis of origin of left vertebral artery. There is plaque in the proximal internal carotid arteries. There is 0% stenosis of the proximal right internal carotid artery relative to normal distal artery lumen diameter (NASCET criteria). There is 0% stenosis of the proximal left internal carotid artery relative to normal distal artery lumen diameter. There is moderate thoracic spondylosis. IMPRESSION: 1. Normal aging brain. 2. 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 3. 0% stenosis of the proximal internal carotid arteries relative to normal distal artery lumen diameters (NASCET criteria). Reviewed, dictated and finalized at location E. IMPRESSION: 1. Normal aging brain. 2. Severe stenosis of the origin of right vertebral artery and moderate stenosi s of origin of left vertebral artery. 3. 0% stenosis of the proximal internal carotid arteries relative to normal dis damian artery lumen diameters (NASCET criteria).
--- NOTE | ~2025-02-05 | XR_ITS ---
EXAMINATION: XR chest 2V, 02/05/2025 19:53 CDT HISTORY: dizziness COMPARISON: No comparisons available. Technique: 2 views obtained. Findings: The lungs are clear, no effusion. No pneumothorax. Heart is normal size. Mediastinal and hilar contours are within normal limits. Bony thorax no acute abnormality. Impression: No acute cardiopulmonary abnormality. Reviewed, dictated and finalized at location P. Impression: No acute cardiopulmonary abnormality.
--- NOTE | 2025-02-05 19:28 | ECG_ITS ---
Test Date: 2025-02-05 19:46:24 Measurements Intervals [place] Rate: 73 P: 36 [place]: 289 QRS: 1 QRSD: 96 T: 43 QT: 371 QTc: 409 Interpretive Statements SINUS RHYTHM WITH FIRST DEGREE AV BLOCK EARLY PRECORDIAL R/S TRANSITION BASELINE ARTIFACT- I, II, III, AVR BORDERLINE ECG No previous ECG available for comparison Electronically Signed On 02-06-2025 06:06:53 CDT by Kyle Quinteros D.O.
[2025-02-05 19:52] LABS: Hematocrit 42.4 % (42.0-52.0); Hemoglobin 14.1 g/dL (14.0-18.0); Immature Granulocyte Percent A 0.6 % (0-0.5); Lymphocytes Absolute Auto 0.72 K/mm3 (0.9-3.2); Mean Corpuscular HGB Conc 33.3 g/dl (32-36); Mean Corpuscular Hemoglobin 31.8 pg (26-34); Mean Corpuscular Volume 95.7 fl (80-100); Nucleated Red Blood Cells Absolute Auto 0.000 K/mm3 (0.0-0.012); Nucleated Red Blood Cells Perc 0.0 % (0.0-0.2); Platelet Count Result 217 k/mm3 (150-375); Red Blood Count 4.43 M/mm3 (4.6-6.20); White Blood Count 7.0 K/mm3 (4.5-10.0)
[2025-02-05 20:07] LABS: Alanine Aminotransferase 26 U/L (6-50); Albumin Level 4.0 g/dL (3.5-5.1); Alkaline Phosphatase 70 U/L (38-126); Anion Gap 8 mmol/L (4-12); Aspartate Amino Transferase 33 U/L (17-59); Bilirubin,Total 0.6 mg/dL (0.2-1.3); Blood Urea Nitrogen 15 mg/dL (9-20); Calcium 8.6 mg/dL (8.4-10.2); Carbon Dioxide 24 mmol/L (22-30); Chloride 106 mmol/L (98-107); Estimated CRCL calculation 72 ml/min; Estimated Glomerular Filt Rate > 60; Glucose 127 mg/dL (65-110); Potassium 4.1 mmol/L (3.4-5.0); Sodium 138 mmol/L (137-145); Total Protein 7.0 g/dL (6.3-8.2)
--- NOTE | 2025-02-05 20:23 | ED.DIZZY ---
HPI - Dizziness General Chief Complaint: Dizziness Stated Complaint: ACHARYA, lightheadedness, dizziness Time Seen by Provider: 02/05/25 19:57 Source: patient and family ( Maria A) Mode of arrival: ambulatory Limitations: no limitations History of Present Illness HPI Narrative: Patient presents with report of intermittent dizziness. This episode started 1600. Has a history of similar and sees ENT ([facility] in [place], Dr Guan's PARAMEDIC INSTRUCTOR Ailyn) who plan to do more of a work up on 02/13, a test that involves examining the stones in his ear. In the interim, had been given information about manual maneuvers he could use for vertigo. . When last saw ENT, cerumen removed from the right. Saw PCP Dr Lawson approximately 2 weeks ago. Recently saw eye doctor and needs to get a new Rx of glasses but otehrwise no acute visual changes including no blurred/double. Denies a headache (it had been reported as both yes and no in triage note) but feels head pressure, particularly behind and under his eyes as well as around his nose/sinuses. . Describes his dizziness as a lightheadedness. No rotational/spinning component. DOes not feel like he is falling. No tinnitus or hearing changes or ear pain though occasionally will hear a pop or two. . Feels off balance, like he was drifting. Not on anticoagulaton but takes 81mg ASA. Also on atorvastatin and metoprolol. Isn't on any medications for diziness except an OTC medication (name unknown) and Advil at 2:30pm. Thinks it might be related to the arthritis in his neck. This was discovered after imaging obtained in August after falling in his driveway and presenting for concussion. No nauesa/vomiting, fevers/chills. Uses Nasocort ; nasal drainage. Position changes seem to precede symptoms, head position changes slightly. No chest pain or shortness of breath. Related Data Home Medications ?Medication ?Instructions ?Recorded ?Confirmed ?Last Taken ?Type aspirin 81 mg tablet,delayed 81 mg PO DAILY 07/04/19 01/13/25 Unknown History release (Adult Aspirin Regimen) nitroglycerin 0.3 mg sublingual 0.3 mg sublingual Q5M PRN 05/08/22 01/13/25 Unknown History tablet acetaminophen 500 mg tablet 500 mg PO Q6H PRN 04/14/23 01/13/25 Unknown History (Tylenol Extra Strength) ibuprofen 200 mg tablet (Advil) 200 mg PO Q6H PRN 04/14/23 01/13/25 Unknown History atorvastatin 20 mg tablet 20 mg PO DAILY 01/13/25 01/13/25 Unknown History Allergies Allergy/AdvReac Type Severity Reaction Status Date / Time Sulfa (Sulfonamide Allergy Intermediate Rash Verified 02/05/25 21:43 Antibiotics) [facility] Past Medical History Medical History Arthritis Mixed hyperlipidemia 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 Family History Family History Sibling Family history of elevated blood lipids Father Family history of Parkinson's disease Social History Social History Social History: Smoking status: Never smoker Second hand tobacco smoke exposure: No Smoking end date: 05/04/75 Alcohol intake: never Substance use: never Lack of Transportation: No Lack of Food: Never True Current Housing: I Have Housing Concerned About Future Housing: No Difficulty Paying Gas/Electric Bills: No Difficulty Paying for Meds: No Currently Unemployed: No Education: Associate Degree Difficulty w/ Childcare or Family Care: No Living arrangements: with family Additional living arrangements comments: Maria A Occupation/Education: occupation 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 HEAD: Normocephalic, atraumatic. EYES: Non injected, non icteric. No nystagmus, horizontal or vertical. ENT: Nares clear, no rhinorrhea or epistaxis. Gross auditory acuity intact. Bilateral external auditory canals clear without signifiicant cerumen. No erythema, bulging effusion. TMs easily visualized bilaterally. No pain with manipulation of bilateral pinnae. NECK: Supple. No meningismus. CHEST: Speaking in full sentences. No respiratory distress. HEART: Regular rate and rhythm. . ABDOMEN: Soft, nondistended. No rigidity or guarding. Not peritoneal EXTREMITIES: Normal range of motion. No lower extremity edema. SKIN: Warm, dry, no rash. NEURO: No focal deficits. Alert and oriented. Answering questions. Following commands. Normal speech without aphasia or dysarthria. PSYCH: Normal mood and affect. Course Vital Signs Vital signs: Vital Signs Temperature 98.4 F 02/05/25 19:19 Pulse Rate 76 02/05/25 19:19 Respiratory Rate 19 02/05/25 19:19 Blood Pressure 164/77 H 02/05/25 19:19 Pulse Oximetry 100 02/05/25 19:19 Oxygen Delivery Room Air 02/05/25 19:19 Temperature 98.4 F 02/05/25 19:31 Pulse Rate 73 02/05/25 23:22 Respiratory Rate 15 02/05/25 23:22 Blood Pressure 163/79 H 02/05/25 23:22 Pulse Oximetry 97 02/05/25 23:22 Oxygen Delivery Room Air 02/05/25 19:31 MDM - Dizziness MDM Narrative Medical decision making narrative: Patient presents with intermittent episodes of dizziness. He sees ENT for this already and is pending a further work up/study on 02/13. Describes lightheadedness with feeling off balance but no rotational component. In the emergency department he is afebrile vital signs notable for hypertension. Although not frankly meeting the definition of vertigo, VERTIGO DIFFERENTIAL DIAGNOSES Central causes: infection ( encephalitis, meningitis, cerebritis); vertebrobasilar arterial insufficiency, subclavian steal syndrome, cerebellar or brainstem hemorrhage or infarction, vertebrobasilar migraine, trauma ( temporal bone fracture, post concussive syndrome); tumor (brainstem or cerebellum); MS; temporal lobe epilepsy Peripheral causes: Foreign body, cerumen impaction, acute otitis media, labyrinthitis, benign paroxysmal positional vertigo, Meniere's disease, vestibular neuronitis, perilymphatic fistula, trauma, motion sickness, acoustic neuroma, ototoxic medications Meclizine given as first line agent although his symptoms do not sound like BPPV necessarily. Chemistry generally unremarkable. CBC with mild abnormalities on differential however without leukocytosis, anemia, thrombocytopenia. Orthostatic blood pressure is assessed and appropriate although it was performed with pulse rate. Patient denies being asymptomatic during this assessment and has otherwise been able to stand and be asymptomatic for example when obtaining chest x-ray. Has remained asymptomatic after several hours. Discussed his CT including normal variant. Stable for discharge. Unclear if improved independently or if it was the meclizine. Will discharge with meclizine Rx but he was advised to call ENT to confirm that it was ok to take versus the time frame to withold before his upcoming study. Lab Data Attestation: I reviewed the patient's lab results. 02/05/25 19:47 02/05/25 19:47 Labs: Lab Results 02/05/25 02/05/25 Range/Units 19:47 21:41 WBC 7.0 (4.5-10.0) K/mm3 RBC 4.43 L (4.6-6.20) M/mm3 Hgb 14.1 (14.0-18.0) g/dL Hct 42.4 (42.0-52.0) % MCV 95.7 (80-100) fl MCH 31.8 (26-34) pg MCHC 33.3 (32-36) g/dl RDW 13.2 (11.5-14.5) % Plt Count 217 (150-375) k/mm3 MPV 8.9 (7.4-10.4) fl Immature Gran % (Auto) 0.6 H (0-0.5) % Neut % (Auto) 75.3 H (45.5-73.1) % Lymph % (Auto) 10.3 L (18.3-44.2) % [place] % (Auto) 9.9 H (2.6-8.5) % Eos % (Auto) 3.3 (0-4.4) % Baso % (Auto) 0.6 (0.2-1.2) % Lymph # (Auto) 0.72 L (0.9-3.2) K/mm3 [place] # (Auto) 0.7 H (0.1-0.6) K/mm3 Eos # (Auto) 0.2 (0-0.3) K/mm3 Baso # (Auto) 0.0 (0.0-0.1) K/mm3 Abs Immat Gran (auto) 0.04 H (0.00-0.031) K/mm3 Absolute Neuts (auto) 5.3 (1.3-6.7) K/mm3 Absolute Nucleated RBC 0.000 (0.0-0.012) K/mm3 Nucleated RBC % 0.0 (0.0-0.2) % Sodium 138 (137-145) mmol/L Potassium 4.1 (3.4-5.0) mmol/L Chloride 106 (98-107) mmol/L Carbon Dioxide 24 (22-30) mmol/L Anion Gap 8 (4-12) mmol/L BUN 15 (9-20) mg/dL Creatinine 0.85 (0.7-1.3) mg/dL Estim Creat Clear Calc 72 ml/min Estimated GFR > 60 (59 - ) Glucose 127 H (65-110) mg/dL Calcium 8.6 (8.4-10.2) mg/dL Total Bilirubin 0.6 (0.2-1.3) mg/dL AST 33 (17-59) U/L ALT 26 (6-50) U/L Alkaline Phosphatase 70 (38-126) U/L Total Protein 7.0 (6.3-8.2) g/dL Albumin 4.0 (3.5-5.1) g/dL Influenza A (RT-PCR) Negative (Negative) Influenza B (RT-PCR) Negative (Negative) RSV (RT-PCR) Negative (Negative) SARS-CoV-2 RNA (RT-PCR) Negative (Negative) Imaging Data Radiologist's impression: CT head Stat Rad: No acute intracranial findings. No hemorrhage. No incidental findings CTA head stat rad: Patent intracranial circulation. Hypoplastic right A1 segment, a developmental variant. No aneurysm or vascular malformation. No incidental findings CTA neck stat rad: Calcific stenoses at the origins of both vertebral arteries, appearing at least moderate. Common internal carotid arteries are adequately patent. No dissections. No incidental findings. ECG Data EKG #1: Attestation: I personally reviewed and interpreted this ECG as follows: ECG completion date: 02/05/25 ECG completion time: 19:46 Prior ECG tracings: available for review (04/29/2016; normal sinus rhythm though WA interval was prolonged at 208 milliseconds consistent with a first-degree AV block) Interpretation: Normal sinus rhythm at a rate of 73 beats per minute. WA interval 289. QRS 96. QT/QTC 371/409. WA interval is prolonged consistent with a first-degree AV block. Good R-wave progression across the precordial leads. No T-wave inversion. Discharge Plan Discharge Clinical Impression: First degree atrioventricular block by electrocardiography, Dizziness, Lightheadedness, Balance problem Patient Disposition: Home Condition: Stable Instructions: Antibiotic Form, Lightheadedness (ED), Dizziness (ED) Additional Instructions: You can continue to take the medication prescribed but, as we discussed, call the otolaryngologists office in the morning to see if it needs to be held for a certain time. In anticipation of the procedures/study you will be undergoing on February 13. I do advise that you keep this appointment. Return to the emergency department with any new or worsening symptoms. Patient Language: Turkish Prescriptions: New meclizine 25 mg tablet,chewable 25 mg PO DAILY PRN (Reason: dizziness) Qty: 30 0RF No Action aspirin [Adult Aspirin Regimen] 81 mg tablet,delayed release (DR/EC) 81 mg PO DAILY metoprolol succinate 25 mg tablet extended release 24 hr 25 mg PO DAILY Qty: 90 0RF ibuprofen [Advil] 200 mg tablet 200 mg PO Q6H PRN acetaminophen [Tylenol Extra Strength] 500 mg tablet 500 mg PO Q6H PRN atorvastatin 20 mg tablet 20 mg PO DAILY nitroglycerin 0.3 mg tablet, sublingual 0.3 mg sublingual Q5M PRN Rx Instructions: do not exceed 3 doses per episode Follow-up/Referrals: [facility] [place] [Other] Referral Note: Jazz Camejo, SOCIAL SERVICE MANAGER-C [Primary Care Provider, Family Practice] Stand Alone Forms: Work/School Release IP Time of Disposition: 23:22
[2025-02-05] MEDS: MECLIZINE HCL 25 MG TABLET PO (20:40)
[2025-02-05 22:27] LABS: Influenza A QL RT-PCR Negative (Negative); Influenza B QL RT-PCR Negative (Negative); RSV RNA, RT-PCR Negative (Negative); SARS-CoV-2 RNA PCR Negative (Negative)
== END 2025-02-05 23:29 | disposition home or self-care (01) ==
PROVIDERS: Emergency Provider Student in an Organized Health Care Education/Training Program; PCP Nurse Practitioner Family
DX: R42 Dizziness and giddiness (principal); I44.0 Atrioventricular block, first degree; Z20.822 Contact with and (suspected) exposure to COVID-19; I25.10 Atherosclerotic heart disease of native coronary artery without angina pectoris; E78.2 Mixed hyperlipidemia; M19.90 Unspecified osteoarthritis, unspecified site
CPT/HCPCS: 36415; 70496; 70498; 71046; 80053; 85025; 87637; 93005; 99284; A9270; Q9967